=== PATIENT | male | born 1940 | race Caucasian/White ===

== ENCOUNTER 2016-03-31 07:35 | Inpatient (IN) | payer OTHER ==
[~2016-03-31] VITALS: Ht 170.2 cm; Wt 61.7 kg
[~2016-03-31 07:35] MED LIST: ADVIL200 MG PO; ALLEGRA ALLERG180 MG PO; B COMPLETE1 EACH PO; CALTRATE 600600 MG PO; CO Q1060 MG PO; ENDOCET 5-3251 EACH PO; FISH OIL 1,0001 EAC7 PO; FLAXSEED OIL1000 M4 PO; FOSINOPRIL SODI40 MG PO; HYDROCHLOROTH12.5 M3 PO; HYDROCODON-ACE1 EAC7 PO; LO-DOSE ASPIRIN81 M1 PO; MAGNESIUM250 MG PO; MONOPRIL20 MG PO; MONTELUKAST SOD10 MG PO; MSM1000 MG PO; MULTIPLE VITAM1 EAC1 PO; POTASSIUM-9999 MG PO; SAW PALMETTO450 MG PO; SYMBICORT60 INHALAT IH; VENTOLIN HFA18 GM IH; VITAMIN D31000 UNIT PO; ZINC50 M1 PO
[2016-03-31 08:02] VITALS: BP 188/96
[2016-03-31] MEDS ORDERED: PERCOCET 5/31 TABLET PO (12:44)
[2016-03-31] MEDS ORDERED: SEPTRA DS TABL1 EACH PO (12:44)
[2016-03-31 15:01] LABS: MCV 91.3 FL (86-99)
[2016-03-31 17:00] VITALS: BP 142/76
[2016-03-31 20:55] VITALS: BP 119/63
[2016-04-01 00:14] VITALS: BP 103/51
[2016-04-01 02:28] VITALS: BP 117/59
[2016-04-01 08:00] VITALS: BP 120/58
[2016-04-01 14:34] LABS: HEMATOCRIT 33.8 % (38.0-50.0); MCV 90.9 FL (86-99)
[2016-04-01 18:06] VITALS: BP 149/68
[2016-04-01 23:37] VITALS: BP 150/73
[2016-04-02 07:30] VITALS: BP 138/74
== END 2016-04-02 13:14 | disposition home or self-care (01) | DRG 708 ==
LOC: 5EAST 07:35 → 2SOUTH 07:35 → 5EAST 16:40
PROVIDERS: Urology
DX: C61 Malignant neoplasm of prostate (principal); R97.21 Rising PSA following treatment for malignant neoplasm of prostate; E78.5 Hyperlipidemia, unspecified; I10 Essential (primary) hypertension; J45.909 Unspecified asthma, uncomplicated; I65.23 Occlusion and stenosis of bilateral carotid arteries
CPT/HCPCS: 85014; 85018; 88305; 88309; 94640; 94640 76; 99202; J0690; J1170; J2250; J2405; J2710; J3010; J7050; J7120; P9045

== ENCOUNTER → 2017-05-20 | Outpatient (CLI) | payer OTHER ==
[~2017-05-20] MED LIST changes: +PERCOCET 5/31 TABLET PO; +SEPTRA DS TABL1 EACH PO
== END | disposition home or self-care (01) ==
LOC: NUC 09:13
DX: M47.896 Other spondylosis, lumbar region (principal); M19.071 Primary osteoarthritis, right ankle and foot; Z85.46 Personal history of malignant neoplasm of prostate; Z90.79 Acquired absence of other genital organ(s)
CPT/HCPCS: 78306; A9503